=== PATIENT | female | born 1975 | race Caucasian/White ===

== ENCOUNTER 2021-10-01 07:34 | Emergency (ER) | payer OTHER, BC ==
[2021-10-01 08:00] VITALS: BP 103/52; PULSE 72; TEMP 98.1
[2021-10-01] MEDS ORDERED: KETOROLAC TROMETHAMINE 30 MG/1 ML VIAL IM ONE (08:25)
[2021-10-01] MEDS ORDERED: KETOROLAC TROMETHAMINE 30 MG/1 ML VIAL ONE (08:36)
== END 2021-10-01 09:22 | disposition home or self-care (01) ==
LOC: JER 07:34
PROC: 3E0233Z Introduction of Anti-inflammatory into Muscle, Percutaneous Approach (ICD-10-PCS; principal; 2021-10-01)
DX: S93.402A Sprain of unspecified ligament of left ankle, initial encounter (principal); W10.9XXA Fall (on) (from) unspecified stairs and steps, initial encounter; X50.0XXA Overexertion from strenuous movement or load, initial encounter
CPT/HCPCS: 73610-TC-LT-FY; 73630-TC-LT; 99284-25

== ENCOUNTER 2023-05-31 06:09 | Emergency (ER) | payer BC, OTHER ==
[2023-05-31 06:29] VITALS: BP 122/77; PULSE 52; RESP 18; TEMP 97.9; BMI 29.2
[2023-05-31] MEDS ORDERED: BACITRACIN 0.9 GM PACKET ONE (09:11)
== END 2023-05-31 09:34 | disposition home or self-care (01) ==
LOC: JER 06:09
PROC: 0HQLXZZ Repair Left Lower Leg Skin, External Approach (ICD-10-PCS; principal; 2023-05-31)
DX: S91.115A Laceration without foreign body of left lesser toe(s) without damage to nail, initial encounter (principal); S50.02XA Contusion of left elbow, initial encounter; S20.212A Contusion of left front wall of thorax, initial encounter; R07.89 Other chest pain; W01.198A Fall on same level from slipping, tripping and stumbling with subsequent striking against other object, initial encounter; Y93.I9 Activity, other involving external motion; Y92.003 Bedroom of unspecified non-institutional (private) residence as the place of occurrence of the external cause
CPT/HCPCS: 73610-TC-LT-FY; 73630-TC-LT; 99283-25

== ENCOUNTER 2024-08-08 04:15 | Day surgery (SDC) | payer BC ==
[2024-08-03 17:38] VITALS: BMI 28.7
[2024-08-08] MEDS ORDERED: ONDANSETRON 4 MG/2 ML VIAL IVPUSH PRN (07:38)
[2024-08-08] MEDS ORDERED: oxyCODONE HCL 5 MG TABLET PO PRN (07:38)
[2024-08-08] MEDS ORDERED: MIDAZOLAM HCL 2 MG/2 ML SINGLE DOSE VIAL ONE (09:48)
[2024-08-08] MEDS ORDERED: DEXAMETHASONE SOD PHOSPHATE 4 MG/1 ML VIAL ONE (09:48)
[2024-08-08] MEDS ORDERED: LIDOCAINE HCL/PF 2% SDV 5ML VIAL ONE (09:48)
[2024-08-08] MEDS ORDERED: PROPOFOL 20 ML ONE ×2 (09:48→11:09)
[2024-08-08] MEDS: LACTATED RINGERS SOLUTION 1,000 ML IV SCH (12:50)
[2024-08-08 13:46] VITALS: BP 117/70; PULSE 60; RESP 20; TEMP 97
== END 2024-08-08 13:47 | disposition home or self-care (01) ==
LOC: JASU-SURG 04:15
PROVIDERS: ATTEND Obstetrics & Gynecology
PROC: 0UDB8ZX Extraction of Endometrium, Via Natural or Artificial Opening Endoscopic, Diagnostic (ICD-10-PCS; principal; 2024-08-08 10:00)
DX: N84.0 Polyp of corpus uteri (principal); D26.0 Other benign neoplasm of cervix uteri
CPT/HCPCS: 81025; 86850; 86900; 86901; 88305-TC; 94760